=== PATIENT | female | born 1960 | race Caucasian/White ===

== ENCOUNTER 2016-11-20 14:57 | Emergency (ER) | payer MEDICAID ==
[2016-11-20 15:02] VITALS: BP 142/70; PULSE 66; RESP 18; TEMP 97.9; O2SAT 96
--- NOTE | 2016-11-20 15:08 | EDPHY ---
H & P Time Seen by Provider: 11/20/16 15:04 HPI/ROS: CHIEF COMPLAINT: Yellow discharge from eyes. HISTORY OF PRESENT ILLNESS: The patient is a 56-year-old female who presents with yellow drainage from her eyes for the last 2 days. She admits associated sore throat and right-sided earache. No change in vision, cough or shortness of breath. No known fever. REVIEW OF SYSTEMS: General: No fever HEENT: As above. Respiratory: No shortness of breath Gastrointestinal: No vomiting Skin: No rash Neurologic: No headache Past Medical/Surgical History: Denies. Social History: Nonsmoker. Smoking Status: Never smoked Physical Exam: General Appearance: Alert, well-appearing Eyes: Pupils equal and round, conjunctival erythema and exudate ENT, Mouth: Mucous membranes moist, tympanic membranes normal Respiratory: Lungs are clear to auscultation Cardiovascular: Regular rate and rhythm Neurological: A&O, nonfocal, normal gait Skin: Warm and dry, no rash Psychiatric: Mood and affect normal Constitutional: Initial Vital Signs Temperature (C) 36.6 C 11/20/16 14:59 Heart Rate 66 11/20/16 14:59 Respiratory Rate 18 11/20/16 14:59 Blood Pressure 142/70 H 11/20/16 14:59 O2 Sat (%) 96 11/20/16 14:59 O2 Delivery Mode Room Air Allergies/Adverse Reactions: No Known Allergies Allergy (Unverified 11/20/16 15:02) Home Medications: Medication Instructions Recorded Aspirin [Aspirin 81mg (*)] 81 mg PO DAILY 11/20/16 Citalopram [CeleXA] 20 mg PO 11/20/16 Citalopram [CeleXA] 20 mg PO 11/20/16 Sulfacetamide 10% [Bleph-10 10%] 2 drops EACHEYE TID #1 opht.btl 11/20/16 Medical Decision Making ED Course/Re-evaluation: 56-year-old female presents with acute conjunctivitis. Rx for sulfacetamide eyedrops for the next 5 days. She understands to follow up with her primary care provider if she is not better and 48 hours. Differential Diagnosis: Differential diagnosis includes but is not limited to pneumonia, otitis media, peritonsillar abscess, retropharyngeal abscess, meningitis. Departure - Departure Disposition: Home, Routine, Self-Care Clinical Impression: Conjunctivitis Qualifiers: Conjunctivitis type: unspecified Laterality: bilateral Qualified Code(s): H10.9 - Unspecified conjunctivitis Condition: Good Instructions: Conjunctivitis (ED) Additional Instructions: Take the antibiotic eye drops as prescribed for the next 5 days. Follow up with your primary care provider in 2 days for reevaluation if drainage persists. Return for any serious worsening of condition. Referrals: Cira Jain DO [Primary Care Provider] - As per Instructions Prescriptions: Sulfacetamide 10% [Bleph-10 10%] 2 drops EACHEYE TID #1 opht.btl Report Scribed for: Eneida Ko Report Scribed by: Kiran Dowling Date of Report: 11/20/16 Time of Report: 15:06 Physician Review and Approval Statement: 11/20/16 15:05 Portions of this note were transcribed by a medical underwriter. I personally performed a history, physical exam, medical decision making, and confirmed accuracy of information the transcribed note.
== END 2016-11-20 15:20 | disposition home or self-care (01) ==
DX: H10.9 Unspecified conjunctivitis (principal); Z79.82 Long term (current) use of aspirin